=== PATIENT | male | born 1970 | race Caucasian/White ===

== ENCOUNTER 2017-03-19 12:22 | Inpatient (IN) | payer OTHER ==
[~2017-03-19] VITALS: Ht 180.3 cm; Wt 146.1 kg
--- NOTE | ~2017-03-19 | PR ---
[place], [place] PROGRESS NOTE NAME: NENA CHASE UNIT #: [id number] ROOM: 520 DOCTOR: ESEQUIEL GARIBAY MD BIRTHDATE: [birth year] DOS: 03/20/2017 REASON FOR VISIT: Chest pain. The patient is feeling better. He is still having intermittent chest pains at rest. No shortness of breath. No PND, no orthopnea, no fever and chills, no cough, no hemoptysis. REVIEW OF SYSTEMS: Review of the 8 systems negative except as mentioned above. RHYTHM STRIPS: The patient is in sinus rhythm. PHYSICAL EXAMINATION: VITAL SIGNS: Blood pressure 130/68, pulse 64, respiratory rate of 16. GENERAL: Alert, comfortable, in no acute distress. HEENT: Pupils are round, equal. No jaundice. Tongue is moist and pharynx is clear. NECK: Supple, no distended neck veins, no carotid bruit. CHEST: Symmetrical, nontender except mild discomfort in the left precordial area. HEART: Regular rhythm, no S3, no palpable thrills. ABDOMEN: Benign, nontender. Bowel sounds normal. EXTREMITIES: Showed trace edema. Distal pulses are palpable. SKIN: Warm and dry. No cyanosis, no clubbing. NEUROLOGIC: The patient is alert, oriented. No focal neurologic deficit. RECTAL: Deferred. GENITOURINARY: Deferred. MEDICATIONS AND LABS: Reviewed. IMPRESSION: 1. Chest pain, atypical, myocardial infarction ruled out. 2. Hypertension, stable. 3. Diabetes type 2. 4. Morbid obesity. 5. Dyslipidemia. RECOMMENDATIONS: 1. Continue current medications. 2. Risk factor modification for diet, exercise, weight loss discussed. 3. Lexiscan stress test today due to chest pain and coronary artery disease risk factors. We will review his 2D echo today. If the stress test is unremarkable, he can be discharged home from today from the cardiac standpoint. [place], [place] PROGRESS NOTE NAME: NENA CHASE UNIT #: [id number] ROOM: 520 DOCTOR: ESEQUIEL GARIBAY MD BIRTHDATE: [birth year] ESEQUIEL GARIBAY MD CM:PNLIV [id number] ESEQUIEL GARIBAY MD 03/21/174 interface
--- NOTE | ~2017-03-19 | CON ---
[place], [place] REPORT OF CONSULTATION NAME: [facility]ASE [id number] UNIT #: [id number] ROOM: 520 DOCTOR: ESEQUIEL GARIBAY MD BIRTHDATE: [birth year] DOS: 03/19/2017 CARDIOLOGY CONSULTATION REASON FOR CONSULTATION: Chest pain. HISTORY OF PRESENTING COMPLAINT: This is a 46-year-old patient with history of hypertension, diabetes, obesity who came to the Emergency Room with complaining of left-sided chest pain. He described his pain as crampy and sharp pain towards left side of the chest, started about 2 weeks ago, is more or less constant, steady pain, no radiation, no associated symptoms. His pain mostly steady pain, no aggravating or relieving factors. No palpitation or dizziness, no shortness of breath, no edema, no orthopnea, no PND. He had some numbness in the right cheek area today. No fever and chills, no cough, no hemoptysis. No nausea, vomiting or diarrhea. No tingling, numbness or weakness. No blurry vision or double vision. No genitourinary symptoms. No musculoskeletal symptoms. No psychiatric symptoms. REVIEW OF SYSTEMS: Review of the 10 systems negative except as mentioned above. PAST MEDICAL HISTORY: 1. Hypertension. 2. Diabetes type 2. 3. Dyslipidemia. 4. Morbid obesity. 5. History of colon polyps. PAST SURGICAL HISTORY: Nil contributory. SOCIAL HISTORY: He does not smoke or use illicit drugs. He does drink once or twice a week. FAMILY HISTORY: Mother had dementia. Father had colon cancer. ALLERGIES: No known drug allergies. HOME MEDICATIONS: Reviewed. PHYSICAL EXAMINATION: VITAL SIGNS: Blood pressure 134/71, pulse 75, respirations 18. BMI 44.9. GENERAL: Alert, comfortable, in no acute distress. HEAD AND NECK: Pupils were round and equal. No jaundice. Tongue was moist and pharynx was clear. Neck was supple, no distended neck veins, no carotid bruit. Thyroid not palpable. CHEST: Symmetrical, nontender. LUNGS: Clear to auscultation bilaterally. HEART: Regular rhythm, no S3, no palpable thrills. ABDOMEN: Obese, nontender. Bowel sounds normal. EXTREMITIES: Showed no edema. Distal pulses are palpable. SKIN: Warm and dry. No cyanosis, no clubbing. [place], [place] REPORT OF CONSULTATION NAME: NENA CHASE [facility] [id number] UNIT #: [id number] ROOM: 520 DOCTOR: LANI CASTRO,ESEQUIEL BIRTHDATE: [birth year] NEUROLOGIC: The patient is alert, oriented. No focal neurologic deficit. RECTAL: Deferred. GENITOURINARY: Deferred. MUSCULOSKELETAL: No joint tenderness or swelling. PSYCHIATRIC: The patient is alert with good mood and affect. REVIEW OF THE DIAGNOSTIC TESTS: EKG rhythm strips and labs reviewed. EKG shows sinus rhythm with a nondiagnostic ST elevation, possibly early repolarization. IMPRESSION: 1. Chest pain, atypical, so far myocardial infarction ruled out. 2. Hypertension, stable. 3. Diabetes type 2. 4. Dyslipidemia. 5. Morbid obesity. RECOMMENDATIONS: 1. Continue current medication. 2. Cycle cardiac enzymes. 3. Lexiscan stress test tomorrow due to his symptoms and the CAD risk factors. 4. Risk factor modification for diet, exercise, weight loss discussed. 5. There is no family at bedside at the time of my examination. Thank you, Dr. Abbott, for asking us to evaluate this patient and we will follow the case along with you. ESEQUIEL GARIBAY MD CM:CONSTR:REPORT OF CONSULTATION 1614 03/20/17 0540 interface
--- NOTE | ~2017-03-19 | ST ---
[place], [place] EXERCISE STRESS TEST REPORT [id number] UNIT #: [id number] ROOM: [facility] DOCTOR: LANI CASTRO,ESEQUIEL BIRTHDATE: [birth year] DOS: 03/20/2017 REASON FOR TEST: Chest pain. PHYSICAL EXAMINATION NECK: Supple. LUNGS: Clear anteriorly. HEART: Regular rhythm. PROTOCOL: Lexiscan protocol. Maximum heart rate 88, peak blood pressure 130/68. Symptoms: The patient is chest pain free. EKG: Resting EKG shows sinus rhythm. Stress EKG showed no ischemia, no arrhythmias. CONCLUSION: The patient is chest pain free. EKG nonischemic. POST-STRESS COMPLICATIONS: None. The patient received total of 0.4 mg of Lexiscan. ESEQUIEL GARIBAY MD CM:STRESS:EXERCISE STRESS TEST REPORT [id number] ESEQUIEL GARIBAY MD
[2017-03-19 12:42] VITALS: BP 128/68
[2017-03-19 12:45] LABS: BASO % 0.5 % (0.0-1.0); EOS # 0.3 10*3/uL (0.0-0.4); EOS % 3.4 % (1.0-4.0); HEMATOCRIT 45.8 % (42.0-52.0); HEMOGLOBIN 15.3 g/dl (14.0-18.0); LYMPH # 2.2 10*3/uL (1.3-4.4); LYMPH % 26.6 % (27.0-41.0); MEAN CELL VOLUME 88.6 fl (80.0-94.0); MEAN CORPUSCULAR HGB 29.6 pg (27.0-31.0); MEAN CORPUSCULAR HGB CONC 33.4 g/dl (33.0-37.0); MEAN PLATELET VOLUME 10.9 fl (9.6-12.3); MONO # 0.6 10*3/uL (0.1-1.0); NEUT # 5.1 10*3/uL (2.3-7.9); NEUT % 62.1 % (47.0-73.0); PLATELET COUNT AUTOMATED 251 10*3/uL (130-400); RED BLOOD COUNT 5.17 10*6/uL (4.50-5.90); RED CELL DISTRI WIDTH 12.9 % (0-14.5); WHITE BLOOD COUNT 8.3 10*3/uL (4.8-10.8)
[2017-03-19 13:01] LABS: ALBUMIN 3.9 gm/dl (3.1-4.5); ALKALINE PHOSPHATASE 66 U/L (45-117); BILIRUBIN, TOTAL 0.9 mg/dl (0.2-1.0); BUN 13 mg/dl (7-24); CARBON DIOXIDE 28 mmol/L (21-32); CHLORIDE 101 mmol/L (98-107); EST GLOM FILT AFRICAN AMERICAN > 60 ml/min; GLUCOSE 224 mg/dL (65-99); MAGNESIUM 2.1 mg/dL (1.5-2.1); POTASSIUM 4.2 mmol/L (3.5-5.1); SGOT/AST 23 IU/L (3-35); SGPT/ALT 34 U/L (12-78); SODIUM 138 mmol/L (136-145); TOTAL PROTEIN 7.3 gm/dL (6.4-8.2)
[2017-03-19 13:03] LABS: TROPONIN I < 0.015 ng/ml (<0.045)
[2017-03-19 13:04] LABS: PROTHROMBIN TIME 10.6 SECONDS (9.0-12.4)
[2017-03-19 13:29] VITALS: BP 138/69
[2017-03-19] MEDS ORDERED: METFORMIN1000 MG PO (14:39)
[2017-03-19] MEDS ORDERED: LISINOPRIL20 MG PO (14:40)
[2017-03-19] MEDS ORDERED: SIMVASTATIN5 MG PO (14:41)
[2017-03-19] MEDS ORDERED: AMARYL4 MG PO (14:47)
[2017-03-19] MEDS ORDERED: CITALOPRAM20 MG PO (14:48)
[2017-03-19] MEDS ORDERED: FARXIGA10 M1 PO (14:50)
[2017-03-19 15:04] VITALS: BP 134/71
[2017-03-19] MEDS ORDERED: CYCLOBENZAPRINE10 MG PO (15:15)
[2017-03-19 16:00] VITALS: BP 134/81
[2017-03-19 20:00] VITALS: BP 155/87
[2017-03-20] VITALS: BP 137/81
[2017-03-20 06:21] LABS: BASO % 0.6 % (0.0-1.0); EOS # 0.3 10*3/uL (0.0-0.4); EOS % 4.6 % (1.0-4.0); HEMATOCRIT 45.3 % (42.0-52.0); HEMOGLOBIN 14.9 g/dl (14.0-18.0); LYMPH # 2.1 10*3/uL (1.3-4.4); LYMPH % 30.1 % (27.0-41.0); MEAN CELL VOLUME 88.5 fl (80.0-94.0); MEAN CORPUSCULAR HGB 29.1 pg (27.0-31.0); MEAN CORPUSCULAR HGB CONC 32.9 g/dl (33.0-37.0); MEAN PLATELET VOLUME 11.1 fl (9.6-12.3); MONO # 0.6 10*3/uL (0.1-1.0); MONO % 8.7 % (3.0-9.0); NEUT % 55.7 % (47.0-73.0); PLATELET COUNT AUTOMATED 234 10*3/uL (130-400); RED BLOOD COUNT 5.12 10*6/uL (4.50-5.90); RED CELL DISTRI WIDTH 12.9 % (0-14.5); WHITE BLOOD COUNT 7.1 10*3/uL (4.8-10.8)
[2017-03-20 06:43] LABS: BUN 12 mg/dl (7-24); CARBON DIOXIDE 27 mmol/L (21-32); CHLORIDE 104 mmol/L (98-107); CHOLESTEROL 126 mg/dL (<200); EST GLOM FILT AFRICAN AMERICAN > 60 ml/min; GLUCOSE 183 mg/dL (65-99); HDL CHOLESTEROL 46 mg/dl (40-60); LDL CHOLESTEROL 60 mg/dL (9-159); PHOSPHOROUS 3.7 mg/dL (2.5-4.9); POTASSIUM 4.1 mmol/L (3.5-5.1); SODIUM 137 mmol/L (136-145); TRIGLYCERIDES 101 mg/dl (<150); VLDL CHOLESTEROL 20 mg/dL (6-40)
[2017-03-20 06:50] LABS: FREE T4 0.74 ng/dl (0.76-1.46)
[2017-03-20 07:33] LABS: HEMOGLOBIN A1c 9.4 % (4.8-5.6)
[2017-03-20 08:00] VITALS: BP 129/81
[2017-03-20 09:21] LABS: FOLIC ACID 19.9 ng/mL (>5.38)
== END 2017-03-20 14:38 | disposition home or self-care (01) | DRG 206 ==
LOC: ED 12:22 → EDHOLD 13:20 → 5E 13:20
PROVIDERS: Emergency Medicine; Student in an Organized Health Care Education/Training Program
PROC: 4A02XM4 Measurement of Cardiac Total Activity, External Approach (ICD-10-PCS; principal; 2017-03-20)
PROC: 3E073KZ Introduction of Other Diagnostic Substance into Coronary Artery, Percutaneous Approach (ICD-10-PCS; principal; 2017-03-20)
DX: M94.0 Chondrocostal junction syndrome [Tietze] (principal); E11.8 Type 2 diabetes mellitus with unspecified complications; Z68.41 Body mass index [BMI] 40.0-44.9, adult; K21.9 Gastro-esophageal reflux disease without esophagitis; E66.01 Morbid (severe) obesity due to excess calories; F41.9 Anxiety disorder, unspecified; I10 Essential (primary) hypertension; E78.5 Hyperlipidemia, unspecified; Z79.4 Long term (current) use of insulin; Z79.899 Other long term (current) drug therapy; Z81.8 Family history of other mental and behavioral disorders; Z80.0 Family history of malignant neoplasm of digestive organs

== ENCOUNTER → 2022-03-04 | Outpatient (CLI) | payer OTHER ==
[~2022-03-04] MED LIST: AMARYL4 MG PO; CITALOPRAM20 MG PO; CYCLOBENZAPRINE10 MG PO; FARXIGA10 M1 PO; LISINOPRIL20 MG PO; METFORMIN1000 MG PO; SIMVASTATIN5 MG PO
== END | disposition home or self-care (01) ==
LOC: RAD 12:10
PROVIDERS: ATTEND Family Medicine
DX: M25.511 Pain in right shoulder (principal)